=== PATIENT | female | born 1980 | race Two or more races ===

== ENCOUNTER 2016-09-10 22:31 | Emergency (ER) | payer SELFPAY ==
[~2016-09-10] VITALS: Ht 172.7 cm; Wt 48.1 kg
[2016-09-10] MEDS ORDERED: NKM (22:44)
--- NOTE | 2016-09-10 23:14 | Emergency Room Report ---
History of Present Illness General Chief Complaint: Abdominal Pain Source: Patient Present Illness HPI Patient is a 36-year-old female presented after increased generalized abdominal pain. Patient reported having watery diarrhea. Patient reports having increased abdominal cramping which did not last for the past 2-3 days. Patient denied any black or bloody stools. Patient reported having normal menses approximately one week ago. Patient had not any change in the pain. She denied any vomiting or nausea. She denied any fever. She denied feeling dizzy or lightheaded. Allergies: Coded Allergies: No Known Allergies (Unverified , 09/10/16) Patient History Past Medical History: see triage record Last Menstrual Period: 08/26/16 Now: No Reviewed Nursing Documentation: PMH: Agreed, PSxH: Agreed Nursing Documentation-PMH Past Medical History: No Stated History Review of Systems All Other Systems: negative except mentioned in HPI Physical Exam Vital Signs Date Time Temp Pulse Resp B/P Pulse Ox O2 Delivery O2 Flow Rate FiO2 09/10/16 22:40 98.2 105 16 160/60 100 Room Air General Appearance: well appearing, no apparent distress, alert, GCS 15, non- toxic Head: normocephalic, atraumatic ENT: hearing grossly normal, normal voice Neck: full range of motion, supple Respiratory: no respiratory distress, speaking full sentences Cardiovascular #1: normal inspection, regular rate, rhythm, no edema Gastrointestinal: normal inspection, normal bowel sounds, non tender, soft, no mass, no bruit Musculoskeletal: normal inspection, back normal, gait/station normal, no calf tenderness Neurologic: normal inspection, alert, responsive, chief of safety and protection III-XII nml as tested, motor strength/tone normal, normal gait Psychiatric: mood/affect normal Skin: normal inspection, normal color, no rash Medical Decision Making Diagnostic Impression: Primary Impression: Viral gastroenteritis ER Course Patient presented for abdominal pain. Differential diagnoses included ischemic bowel, appendicitis, perforated viscus, abdominal aortic aneurysm, inferior myocardial infarction, viral gastroenteritis. Patient's benign exam and does not appear to require any further imaging or laboratory testing at this time. A urinalysis showed no evidence of infection. Urine test was negative. The patient was given a GI cocktail. The patient given prescriptions for loperamide as well as Bentyl. Patient appears to have a viral gastroenteritis. Labs Test 09/10/16 22:48 Urine Color Pale yellow Urine Appearance Clear Urine pH 5 (4.5-8.0) Urine Specific [place] 1.010 (1.005-1.035) Urine Protein Negative (NEGATIVE) Urine Glucose (UA) Negative (NEGATIVE) Urine Ketones Negative (NEGATIVE) Urine Occult Blood 2+ (NEGATIVE) Urine Nitrite Negative (NEGATIVE) Urine Bilirubin Negative (NEGATIVE) Urine Urobilinogen Normal MG/DL (0.0-1.0) Urine Leukocyte Esterase Negative (NEGATIVE) Urine RBC 0-2 /HPF (0 - 2) Urine WBC 0 /HPF (0 - 2) Urine Squamous Epithelial Cells Few /LPF (NONE/OCC) Urine Bacteria Few /HPF (NONE) Urine HCG, Qualitative Negative Last Vital Signs Date Time Temp Pulse Resp B/P Pulse Ox O2 Delivery O2 Flow Rate FiO2 09/10/16 22:40 98.2 105 16 160/60 100 Room Air Status: improved Disposition: HOME, SELF-CARE Condition: Stable Scripts Loperamide HCl (Loperamide) 2 Mg Capsule 2 MG ORAL Q4H for Diarrhea, #20 CAP 0 Refills Prov: Shane Heller 09/10/16 Dicyclomine Hcl* (BENTYL*) 10 Mg Capsule 10 MG ORAL FOUR TIMES A DAY, #30 CAP Prov: Shane Heller 09/10/16 Shane Heller Sep 10, 2016 23:14
[2016-09-10] MEDS ORDERED: Dicyclomine HCl 10mg/5ml oral soln ORAL ONE ×2 (23:15)
[2016-09-10] MEDS ORDERED: IMODIUM2 MG ORAL (23:34)
[2016-09-10] MEDS ORDERED: BENTYL10 MG ORAL (23:34)
[2016-09-10 23:35] LABS: APPEARANCE,URINE CLEAR; KETONES,URINE NEGATIVE (NEGATIVE); LEUKOCYTE ESTERASE ,URINE NEGATIVE (NEGATIVE); NITRITE,URINE NEGATIVE (NEGATIVE); PH,URINE 5 (4.5-8.0); PROTEIN,URINE NEGATIVE (NEGATIVE); UROBILINOGEN,URINE NORMAL MG/DL (0.0-1.0)
[2016-09-10 23:46] LABS: RBC,URINE 0-2 /HPF (0 - 2); WBC,URINE 0 /HPF (0 - 2)
[2016-09-10 23:47] LABS: BACTERIA,URINE FEW /HPF; SQUAMOUS EPITHELIAL CELL,UR FEW /LPF (NONE/OCC)
[2016-09-11 00:08] VITALS: BP 160/60
== END 2016-09-11 00:11 | disposition home or self-care (01) ==
LOC: EMR 23:00
DX: A08.4 Viral intestinal infection, unspecified (principal)
CPT/HCPCS: 81003; 81025; 99284